=== PATIENT | female | born 1955 | race Caucasian/White ===

== ENCOUNTER 2016-10-06 13:31 | Emergency (ER) | payer OTHER ==
[~2016-10-06] VITALS: Ht 165.1 cm; Wt 73.9 kg
[~2016-10-06 13:31] MED LIST: ALEN70TA4 PO; CALC-354 PO; DVN80125 PO; GLUCTAB18 PO; LEVO88TA PO; MULT-884 PO; OMEG1200 PO
[2016-10-06 13:40] VITALS: BP 166/104; PULSE 74; TEMP 36.8; O2SAT 96; Ht 165.1 cm; Wt 73.9 kg
[2016-12-02] MEDS ORDERED: HYDR-5688 PO (15:37)
[2016-12-02] MEDS ORDERED: GABA-113 PO (15:37)
[2016-12-05] MEDS ORDERED: RXC5 PO (07:50)
== END 2016-10-06 14:45 | disposition left against medical advice (07) ==
LOC: C.EDB 13:33
DX: R20.0 Anesthesia of skin (principal)

== ENCOUNTER → 2016-11-06 | Outpatient (CLI) | payer BC ==
[~2016-11-06] MED LIST changes: +GABA-113 PO; +HYDR-5688 PO; +RXC5 PO; +[UNRECOGNIZED DRUG - CODE]
--- NOTE | 2016-11-06 11:42 | DIAGNOSTIC IMAGING REPORT ---
MRI OF THE LUMBAR SPINE WITHOUT IV CONTRAST CLINICAL HISTORY: Lumbar radiculopathy. Low back pain. COMPARISON STUDY: No priors. TECHNIQUE: MRI of the lumbar spine is performed utilizing various T1 and T2-weighted sequences in the axial and sagittal planes. IV contrast was not administered for this examination. FINDINGS: Lumbar spine: Vertebral body height and alignment are maintained throughout the lumbar spine. The transverse and spinous processes are intact as imaged. There is no evidence of spondylolysis. Large hemangiomas are present in the bodies of L2, L4, and L5. A Schmorl's node is seen in the superior endplate of T12. There is minimal chronic endplate change seen at L3-L4. No destructive bony lesion is suspected. Intervertebral discs: There is degenerative disc desiccation noted throughout the lumbar spine. There is moderate loss of height at L4-L5. Spinal cord: The imaged spinal cord is normal in morphology and signal intensity. The conus medullaris terminates at the level of L5. The nerve roots of the cauda equina are normal in morphology. L1-L2: There is minimal disc bulge. The central canal and neural foramina are widely patent. L2-L3: Unremarkable. L3-L4: Unremarkable. L4-L5: There is a posterior disc herniation with an inferiorly extruded fragment eccentric to the right. Annular fissure is noted. The extruded fragment measures up to 1.7 cm and impinges on the transiting right-sided L5 and S1 nerve roots. There is only minimal acquired compromise of the central canal at this level with a minimum AP diameter of 8 mm. The neural foramina are patent. L5-S1: There is minimal disc bulge eccentric to the right. This may abut the exiting right L5 nerve root. The central canal is clear. Facet arthropathy is of no consequence. The neural foramina are patent. Sacrum: The visualized sacrum is normal in morphology and signal intensity. Tiny hemangioma is noted in the body of S1. Soft tissues: The paraspinous soft tissues are within normal limits. The partially imaged retroperitoneal structures are grossly normal, but incompletely evaluated. IMPRESSION: 1. There is a disc herniation eccentric to the right at L4-L5 with an inferiorly extruded fragment. The disc fragment impinges on the transiting right L5 and S1 nerve roots. 2. There is mild acquired compromise of the central canal at L4-L5. The central canal is otherwise widely patent. 3. Degenerative change at additional levels as detailed above. See discussion for level by level analysis. Dictated: 11/06/2016 10:55 AM Transcribed: 11/06/2016 11:41 AM LOUISE_Eduar Electronically signed by: Nolberto Junior M.D. 11/06/2016 11:51 AM Dictated Date/Time: 11/06/2016 10:55 AM
== END | disposition home or self-care (01) ==
LOC: C.MRIBC 09:22
PROVIDERS: ATTEND Pain Medicine Interventional Pain Medicine
DX: M51.16 Intervertebral disc disorders with radiculopathy, lumbar region (principal)

== ENCOUNTER → 2016-12-02 | Outpatient (CLI) | payer BC ==
--- NOTE | 2016-12-02 15:18 | DIAGNOSTIC IMAGING REPORT ---
CHEST 2 VIEWS ROUTINE CLINICAL HISTORY: M54.16 PRE-OP COMPARISON STUDY: No previous studies for comparison. FINDINGS: The bones soft tissues and hemidiaphragms are normal. The cardiomediastinal silhouette is normal. The lungs are clear. The pulmonary vasculature is normal. IMPRESSION: Negative chest. Electronically signed by: James Davis M.D. 12/02/2016 3:16 PM Dictated Date/Time: 12/02/2016 3:16 PM
[2016-12-02 15:58] LABS: BASO % 0.7 %; BASO ABS # 0.04 K/uL (0-0.2); COMPLETE YES; EOS % 2.7 %; HEMATOCRIT 40.5 % (37-47); LYMPH % 35.9 %; LYMPH ABS # 2.14 K/uL (1.2-3.4); MEAN CELL VOLUME 90.6 fL (80-100); MEAN CORPUSCULAR HGB CONC 33.1 g/dl (32-36); MEAN PLATELET VOLUME 9.8 fL (7.4-10.4); MONO % 5.9 %; NEUT % 54.8 %; PLATELET COUNT 247 K/uL (130-400); RED BLOOD COUNT 4.47 M/uL (4.2-5.4); URINE APPEARANCE CLOUDY (CLEAR); URINE BILIRUBIN NEG (NEG); URINE COLOR YELLOW; URINE EPITHELIAL CELL AUTO >30 /lpf (0-5); URINE NITRITE NEG (NEG); URINE PH 5.5 (4.5-7.5); URINE SPECIFIC GRAVITY 1.023 (1.000-1.030); UROBILINOGEN NEG (NEG); WHITE BLOOD COUNT 5.96 K/uL (4.8-10.8)
[2016-12-02 15:59] LABS: MANUAL MICROSCOPIC REQUIRED? NO; REVIEW REQ? NO
[2016-12-02 16:25] LABS: BLOOD UREA NITROGEN 14 mg/dl (7-18); CALCIUM 8.9 mg/dl (8.5-10.1); CARBON DIOXIDE 31 mmol/L (21-32); CHLORIDE 107 mmol/L (98-107); CREATININE 0.72 mg/dl (0.60-1.20); GLUCOSE 94 mg/dl (70-99); POTASSIUM 3.6 mmol/L (3.5-5.1); SODIUM 142 mmol/L (136-145)
--- NOTE | 2016-12-03 09:32 | DIAGNOSTIC IMAGING REPORT ---
LUMBAR SPINE, INTRAOPERATIVE FLUOROSCOPY HISTORY: L4-S1 posterior decompression and fusion. FLUOROSCOPY TIME: 19 seconds. FINDINGS: Intraoperative fluoroscopy was provided for the lumbar spine. 2 fluoroscopic spot images were obtained. L4-S1 posterior decompression fusion with pedicle screws and rods. The hardware appears intact. IMPRESSION: Fluoroscopy provided for a L4-S1 posterior decompression and fusion. Electronically signed by: Tez Chau M.D. 12/03/2016 9:30 AM Dictated Date/Time: 12/03/2016 9:30 AM
== END | disposition home or self-care (01) ==
LOC: C.CPL 14:32
PROVIDERS: ATTEND Orthopaedic Surgery Orthopaedic Surgery of the Spine
DX: M54.16 Radiculopathy, lumbar region (principal)

== ENCOUNTER 2016-12-03 05:46 | Inpatient (IN) | payer BC ==
[2016-12-02 15:39] VITALS: Ht 160 cm; Wt 68.2 kg
[~2016-12-03] VITALS: Ht 160 cm; Wt 68.2 kg
[2016-12-03] VITALS (11 sets, daily range): BP systolic 102–154; BP diastolic 62–89; PULSE 66–82; TEMP 36.4–36.9; O2SAT 94–100
[~2016-12-03 05:46] MED LIST changes: -ALEN70TA4 PO; -RXC5 PO; -[UNRECOGNIZED DRUG - CODE]
[2016-12-03] MEDS ORDERED: CEFAZOLIN 1000MG/55 ML D5W IV SCH (06:00)
[2016-12-03] MEDS ORDERED: LACTATED RINGER'S 1000ML 1,000 ML IV SCH (06:00)
[2016-12-03] MEDS ORDERED: FENTANYL CITRATE INJ 50 MCG/1 ML 2 ML VIAL ONE ×2 (06:42→07:53)
[2016-12-03] MEDS ORDERED: MIDAZOLAM HCL 1 MG/ML 2ML VIAL ONE (06:42)
[2016-12-03] MEDS ORDERED: BACITRACIN 50000 UNIT VIAL ONE (06:55)
[2016-12-03] MEDS ORDERED: SODIUM CHLORIDE 0.9% PF 50 ML VIAL ONE (06:55)
[2016-12-03] MEDS ORDERED: BUPIVACAINE/EPINEPHRINE 0.5% MPF 1:200,000 30 ML VIAL ONE (06:55)
[2016-12-03] MEDS ORDERED: SCOPOLAMINE 1.5 MG TDSY TD ONE ×2 (07:07→07:15)
[2016-12-03] MEDS ORDERED: LACTATED RINGER'S 1000ML 1,000 ML IV PRN (07:11)
[2016-12-03] MEDS ORDERED: [UNRECOGNIZED DRUG - CODE] (07:13)
[2016-12-03] MEDS ORDERED: ONDANSETRON INJ 2 MG/ML 2 ML VIAL IV PRN ×2 (07:15→09:45)
[2016-12-03] MEDS ORDERED: FENTANYL CITRATE INJ 50 MCG/1 ML 2 ML VIAL IV PRN (07:15)
[2016-12-03] MEDS ORDERED: DiphenhydrAMINE HCL 50 MG/ML VIAL IV PRN (07:15)
[2016-12-03] MEDS ORDERED: HYDROmorphone INJ 1 MG/ML SYR IV PRN (07:15)
--- NOTE | 2016-12-03 07:26 | History & Physical Bridge Note ---
H&P Re-Evaluation Bridge Note: I have examined the patient, reviewed the History & Physical and in the interval since the performance of the History & Physical I have noted the following changes of clinical significance: No changes noted
--- NOTE | 2016-12-03 07:31 | History and Physical ---
History & Physical Date December 03, 2016. Chief Complaint back and leg pain History of Present Illness The patient is a 61 year old female with complaints of Past Medical/Surgical History Medical Problems: (1) HTN (hypertension) Surgical Problems: (1) H/O sinus surgery (2) H/O: hysterectomy (3) History of back surgery Additional History Hepatic Disease: No Endocrine Disorder: No Kidney Disease: No Hypertension: No Heart Disease: No Bleeding Tendencies: No Infectious Diseases: No Allergies Coded Allergies: Morphine (Verified Adverse Reaction, Unknown, vomiting, 12/03/16) Home Medications Scheduled Calcium Carbonate-Cholecalcife (Caltrate 600+D), 1 TAB PO BID Estropipate (Estropipate), 1 TAB DAILY Gabapentin (Neurontin), 300 MG PO HS Glucosamine-Chondroitin (Osteo Bi-Flex Regular Str), 1 TAB PO BID Levothyroxine Sodium (Synthroid), 88 MCG PO QAM Multiple Vitamin (Multi Vitamin Daily), 1 TAB PO QAM [place]-3 Fatty Acids (Fish Oil), 3 CAP PO QAM Valsartan/Hctz (Diovan Hct), 12.5-80 MG PO QAM Scheduled PRN Hydrocodone/Acetaminophen 5MG/325MG ([place] 5MG/325MG), 1 TABLET PO Q6H PRN for Pain Physical Examination Skin: warm/dry, no rash Eyes: normal inspection, EOMI, sclerae normal ENT: normal ENT inspection, pharynx normal Head: normocephalic, atraumatic Neck: supple, no adenopathy, trachea midline Respiratory/Chest: lungs clear, normal breath sounds, no respiratory distress Cardiovascular: regular rate, rhythm, no edema, no murmur Abdomen / GI: normal bowel sounds, non tender Back: normal inspection Extremities: normal inspection, normal range of motion Neurologic/Psych: no motor/sensory deficits, alert, normal reflexes, oriented x 3 Diagnosis lumbar stenosis Plan of Treatment decompression fusion L4-S1
[2016-12-03] MEDS ORDERED: HYDROmorphone INJ 2 MG/ML SYR/VIAL ONE ×2 (07:53→09:33)
[2016-12-03] MEDS ORDERED: CEFAZOLIN SOD 1 GM VIAL ONE (08:05)
[2016-12-03] MEDS ORDERED: ROCURONIUM BROMIDE 10 MG/ML 5 ML VIAL ONE (08:05)
[2016-12-03] MEDS ORDERED: PROPOFOL IV EMULSION 10 MG/ML 20 ML VIAL IV ONE (08:05)
[2016-12-03] MEDS ORDERED: RANITIDINE HCL 25 MG/ML INJ ONE (08:05)
[2016-12-03] MEDS ORDERED: LIDOCAINE HCL 2% 2 ML VIAL (20MG/ML) ONE (08:05)
[2016-12-03] MEDS ORDERED: DiphenhydrAMINE HCL 50 MG/ML VIAL ONE (08:05)
[2016-12-03] MEDS ORDERED: ONDANSETRON INJ 2 MG/ML 2 ML VIAL ONE ×2 (08:05→09:35)
[2016-12-03] MEDS ORDERED: METOCLOPRAMIDE HCL INJ 5 MG/ML 2 ML VIAL ONE (08:05)
[2016-12-03] MEDS ORDERED: DEXAMETHASONE SOD INJ 4 MG/ML VIAL ONE (08:05)
[2016-12-03] MEDS ORDERED: FLOSEAL HEMOSTATIC MATRIX 10ML TOP ONE (09:20)
[2016-12-03] MEDS ORDERED: NEOSTIGMINE METHYLSULFATE 1 MG/ML 10ML VIAL ONE (09:35)
[2016-12-03] MEDS ORDERED: GLYCOPYRROLATE INJ 0.2 MG/ML VIAL ONE (09:35)
[2016-12-03] MEDS ORDERED: KETOROLAC TROMETHAMINE 30 MG/ML VIAL ONE (09:35)
[2016-12-03] MEDS ORDERED: EpHEDrine SULFATE 50MG/5ML SYR ONE (09:35)
[2016-12-03] MEDS: LACTATED RINGER'S 1000ML 1,000 ML IV SCH ×3 (09:38→23:00)
[2016-12-03] MEDS ORDERED: SODIUM CHLORIDE 0.9% 1000ML 1,000 ML IV SCH (09:38)
--- NOTE | 2016-12-03 09:38 | [facility] Post Operative Brief Note ---
Immediate Operative Summary Operative Date December 03, 2016. Pre-Operative Diagnosis Lumbar Spinal Stenosis L4-S1 Post-Operative Diagnosis Same as preoperative. Procedure(s) Performed L5-S1 Revision, L4-S1 Decompression Posterior Lumbar Spinal Fusion, Placement of Interbody Spacer L4-L5, Pedicle Screw Fixation and Posteriolateral Gutter Fusion , Allograft, Application of Bone Morphogenetic Protein, Katina. Surgeon Net Architect Surgeon(s) Nichol Patrick Pa-C Estimated Blood Loss 125ML Findings hnp/stenosis Specimens None per surgeon
[2016-12-03] MEDS ORDERED: ALUMINUM/MAGNESIUM SUSP 30 ML UDC PO PRN (09:45)
[2016-12-03] MEDS ORDERED: FAMOTIDINE 20 MG TAB PO PRN (09:45)
[2016-12-03] MEDS ORDERED: MAGNESIUM HYDROXIDE SUSP 30 ML UDC PO PRN (09:45)
[2016-12-03] MEDS ORDERED: DO NOT ADMINISTER FLU VACCINE PRN ×3 (09:45)
[2016-12-03] MEDS ORDERED: ACETAMINOPHEN 500 MG TAB PO PRN (09:45)
[2016-12-03] MEDS ORDERED: HYDROmorphone HCL 0.5MG/ML 50 ML CASSETTE IV PRN (09:45)
[2016-12-03] MEDS ORDERED: LORAZEPAM INJ 0.5 MG in SYRINGE 0.75 ML IV PRN (09:45)
[2016-12-03] MEDS ORDERED: METOCLOPRAMIDE HCL INJ 5 MG/ML 2 ML VIAL IV PRN (09:45)
[2016-12-03] MEDS ORDERED: DO NOT ADMINISTER PNEUMOCOCCAL VACCINE PRN ×2 (09:45)
[2016-12-03] MEDS ORDERED: PROMETHAZINE HCL INJ 12.5 MG in SODIUM CHLORIDE 0.9% 50ML 50 ML IV PRN (09:45)
[2016-12-03] MEDS ORDERED: LORAZEPAM 0.5 MG TAB PO PRN (09:45)
[2016-12-03] MEDS ORDERED: NALOXONE HCL 0.4 MG/1 ML VIAL/CARP IV PRN ×2 (09:45)
[2016-12-03] MEDS ORDERED: SOD PHOSPHATE/SOD BIPHOSPHATE ENEMA 132 ML BTL PR PRN (09:45)
[2016-12-03] MEDS ORDERED: ACETAMINOPHEN IV 100 ML IV PRN (09:45)
[2016-12-03] MEDS ORDERED: hydrOXYzine HCL 25 MG TAB PO PRN (09:45)
[2016-12-03] MEDS ORDERED: BISACODYL 10 MG SUPP PR PRN (09:45)
[2016-12-03] MEDS ORDERED: HYDROmorphone HCL 0.5MG/ML 50 ML CASSETTE ONE (09:56)
--- NOTE | 2016-12-03 10:15 | OPERATIVE REPORT ---
DATE OF OPERATION: 12/03/2016 PREOPERATIVE DIAGNOSES: Herniated nucleus pulposus and spinal stenosis L4-L5 and L5-S1. POSTOPERATIVE DIAGNOSES: Same. PROCEDURES PERFORMED: 1. Revision decompression, medial facetectomy and foraminotomy, L3-L4, L4-L5 and L5-S1. 2. Posterior spinal fusion, L4-L5 and L5-S1. 3. Placement of posterior segmental instrumentation using Orthros rods and screws, L4-L5 and L5-S1. 4. Interbody fusion, L4-L5. 5. Placement of PEEK cage 10 x 22 at L4-L5. 6. Placement of locally harvested morselized autograft in the posterior gutters. 7. Placement of Infuse collagen sponge combined with Mastergraft in the posterior gutters and Katina bone graft in the interbody space. SURGEON: Dr. Niko Tompkins. RADIO HOST: Nichol Patrick PA-C. Due to the complex nature of the procedure, the entire surgery was performed with the machine operator assistant of Nichol Patrick PA-C. The machine operator assistant, under direct supervision, was involved in the actual performance of all aspects of the surgical procedure including hemostasis, tissue retraction and incision, instrument management, patient positioning, and wound closure. ANESTHESIA: General. DISPOSITION: The patient awakened and taken to PACU in stable condition. HISTORY OF PATIENT'S PROBLEMS: This is a 61-year-old female who presents with above-mentioned diagnoses. After failing an extensive course of nonoperative care, she elected to undergo the above-mentioned procedures. Risks, benefits, pros, cons, and alternatives were outlined in detail preoperatively. DESCRIPTION OF PROCEDURE: The patient was met with preoperatively, the case discussed and all questions were addressed. At that point, the patient was taken back to operative suite and after undergoing successful general intubation by the department of anesthesia, she was placed in prone position on Wolfgang table atop a Chase frame. All bony prominences were well padded and the eyes were inspected to ensure there was no external pressure placed upon them. At this point, lumbar spine was prepped and draped in normal sterile fashion. Sharp dissection with the assistance of Bovie cautery was performed down to and exposing the remaining lamina and transverse processes of L4, L5 and sacral ala bilaterally. From a caudal to cephalad fashion, a revision complete laminectomy of L5, L4, and partial laminectomy of L3 was performed addressing all lateral recess stenosis and foraminal disease particularly on the right. Pedicle screws were then placed in L4, L5 and S1 levels bilaterally with assistance of fluoroscopy and appropriate size alexandrea provisionally placed. Through transforaminal approach on the right, a complete diskectomy of L4-L5 was performed. Endplates were curetted to subcortical bleeding bone and a 10 x 22 mm PEEK cage filled with Katina bone grafting tapped into position. We were also able to retrieve all free fragments of disk material that migrated caudally under the L5 nerve root. I then proceeded to explore L5-S1 disk that was fairly extensively calcified posteriorly and we had excellent decompression and elected not to do an interbody at this level. The rods were then locked into final position bilaterally. A 7 flat ANDREA drain inserted and a transverse processes of L4, L5 and sacral ala burred to subcortical bleeding bone. Infused collagen sponge combined with Mastergraft and locally harvested morselized autograft was placed in the posterior gutters. A 7 flat ANDREA inserted. Incision was closed with 1-0 Vicryl in the fascia, 2-0 Vicryl subcutaneously, and 4-0 Monocryl for final skin closure. Steri-strips and sterile dressings placed. The patient was awakened and taken to PACU in stable condition. I attest to the content of the Intraoperative Record and any orders documented therein. Any exceptio ns are noted below.
--- NOTE | 2016-12-03 11:03 | Anesthesiology Progress Note ---
Anesthesia Post Op Note Date & Time December 03, 2016 at 11:03 Vital Signs Pain Intensity: 0 Vital Signs Past 12 Hours Date Time Temp Pulse Resp B/P Pulse Ox O2 Delivery O2 Flow Rate FiO2 12/03/16 10:25 36.4 75 16 136/85 100 Nasal Cannula 3 12/03/16 10:15 78 16 149/78 100 Nasal Cannula 3 12/03/16 10:05 83 16 137/77 100 Mask 5 12/03/16 09:55 88 16 138/80 100 Mask 10 12/03/16 09:49 36.5 105 18 147/79 100 Mask 10 12/03/16 06:46 36.4 66 16 154/89 100 Room Air Notes Mental Status: alert / awake / arousable, participated in evaluation Pt Amnestic to Procedure: Yes Nausea / Vomiting: adequately controlled Pain: adequately controlled Airway Patency, RR, SpO2: stable & adequate BP & HR: stable & adequate Hydration State: stable & adequate Anesthetic Complications: no major complications apparent Pt did well.
[2016-12-03] MEDS ORDERED: IV FLUIDS COMPLETED PRN (12:15)
[2016-12-03] MEDS: CEFAZOLIN IV 1,000 MG in DEXTROSE 5% 50ML 50 ML IV SCH (15:45)
[2016-12-03] MEDS: DEXAMETHASONE INJ 6 MG in SYRINGE 0 ML IV SCH (15:46)
[2016-12-03] MEDS: DOCUSATE SODIUM/SENNA 50/8.6MG TAB PO SCH (21:25)
[2016-12-03] MEDS: GABAPENTIN 300 MG CAP PO SCH (21:25)
[2016-12-04] MEDS: DEXAMETHASONE INJ 6 MG in SYRINGE 0 ML IV SCH ×3 (00:17→08:00)
[2016-12-04] MEDS: CEFAZOLIN IV 1,000 MG in DEXTROSE 5% 50ML 50 ML IV SCH (00:18)
[2016-12-04 03:10] VITALS: BP 110/69; PULSE 80; TEMP 36.8; O2SAT 96
[2016-12-04] MEDS: LACTATED RINGER'S 1000ML 1,000 ML IV SCH (05:38)
[2016-12-04] MEDS: LEVOTHYROXINE 88 MCG TAB PO SCH (05:53)
[2016-12-04] MEDS ORDERED: DC PCA SCH (06:00)
[2016-12-04] MEDS ORDERED: HYDROmorphone INJ 1 MG/ML SYR IV PRN (06:00)
[2016-12-04 06:12] LABS: BASO % 0.1 %; BASO ABS # 0.01 K/uL (0-0.2); COMPLETE YES; HEMATOCRIT 33.6 % (37-47); IG% 0.2 %; LYMPH % 5.8 %; LYMPH ABS # 0.84 K/uL (1.2-3.4); MEAN CELL VOLUME 89.6 fL (80-100); MEAN CORPUSCULAR HEMOGLOBIN 30.1 pg (25-34); MEAN CORPUSCULAR HGB CONC 33.6 g/dl (32-36); MEAN PLATELET VOLUME 9.8 fL (7.4-10.4); MONO % 2.7 %; NEUT % 91.2 %; PLATELET COUNT 228 K/uL (130-400); RED BLOOD COUNT 3.75 M/uL (4.2-5.4); WHITE BLOOD COUNT 14.55 K/uL (4.8-10.8)
[2016-12-04] MEDS ORDERED: NURSING VERBAL MED ORDER ONE ×2 (06:15→08:15)
[2016-12-04 06:45] LABS: BUN/CREATININE RATIO 14.3 (10-20); CALCIUM 8.1 mg/dl (8.5-10.1); CREATININE 0.7 mg/dl (0.60-1.20); POTASSIUM 4.2 mmol/L (3.5-5.1)
[2016-12-04 06:52] VITALS: BP 102/64; PULSE 73; TEMP 36.7; O2SAT 95
--- NOTE | 2016-12-04 07:44 | Anesthesiology Progress Note ---
Anesthesia Post Op Note Date & Time December 04, 2016 at 07:45 Vital Signs Pain Intensity: 5.0 Vital Signs Past 12 Hours Date Time Temp Pulse Resp B/P Pulse Ox O2 Delivery O2 Flow Rate FiO2 12/04/16 06:52 36.7 73 18 102/64 95 Room Air 12/04/16 03:10 36.8 80 16 110/69 96 Room Air 12/03/16 23:10 Room Air 12/03/16 22:55 36.7 71 16 109/66 95 Room Air Notes Mental Status: alert / awake / arousable, participated in evaluation Pt Amnestic to Procedure: Yes Nausea / Vomiting: adequately controlled Pain: adequately controlled Airway Patency, RR, SpO2: stable & adequate BP & HR: stable & adequate Hydration State: stable & adequate Anesthetic Complications: no major complications apparent
[2016-12-04] MEDS: VALSARTAN 80 MG TAB PO SCH (07:59)
[2016-12-04] MEDS: HYDROCHLOROTHIAZIDE 25 MG TAB PO SCH (07:59)
[2016-12-04] MEDS ORDERED: COUGH DROP (SUGAR FREE) LOZ 24 LOZ/1 BOX ONE (08:07)
[2016-12-04] MEDS: OXYCODONE HCL IR 5 MG TAB (IMMEDIATE RELEASE) PO PRN ×2 (08:11→12:04)
[2016-12-04] MEDS ORDERED: COUGH DROP (SUGAR FREE) LOZ 24 LOZ/1 BOX PO PRN (08:30)
[2016-12-04] MEDS ORDERED: VALSARTAN/HCTZ 80/12.5 MG TAB PO SCH (09:00)
[2016-12-04 11:23] VITALS: BP 130/85
[2016-12-04 14:16] VITALS: BP 114/72; PULSE 62; TEMP 36.5; O2SAT 99
--- NOTE | 2016-12-04 14:26 | PROGRESS NOTE ---
DATE: 12/04/2016 Postop day 1. Back pain is controlled. Leg pain improved. Vital signs stable. T-max 36.8. ANDREA drained 50 mL. Hematocrit 33.6. PHYSICAL EXAMINATION: She is sitting in chair at bedside. Has good strength to testing. Appears comfortable. ASSESSMENT: Status post lumbar decompression and fusion. PLAN: At this time, will continue physical therapy, advance his bowel regimen. Anticipate home in the next few days. RAINA
[2016-12-04 15:40] VITALS: BP 116/76; PULSE 66; TEMP 36.5; O2SAT 100
[2016-12-04] MEDS: KETOROLAC TROMETHAMINE 30 MG/ML VIAL IV PRN (18:56)
[2016-12-04] MEDS: DOCUSATE SODIUM/SENNA 50/8.6MG TAB PO SCH (21:06)
[2016-12-04] MEDS: GABAPENTIN 300 MG CAP PO SCH (21:06)
[2016-12-04 22:55] VITALS: BP 112/74; PULSE 69; TEMP 36.6; O2SAT 96
[2016-12-05] MEDS ORDERED: POLYETHYLENE (MIRALAX) 17 GM PACK PO SCH (06:00)
[2016-12-05] MEDS: LEVOTHYROXINE 88 MCG TAB PO SCH (06:16)
[2016-12-05] MEDS: KETOROLAC TROMETHAMINE 30 MG/ML VIAL IV PRN (06:17)
[2016-12-05 06:57] VITALS: BP 136/83; PULSE 68; TEMP 36.4; O2SAT 98
[2016-12-05] MEDS ORDERED: RXC5 PO (07:50)
--- NOTE | 2016-12-05 07:51 | Discharge Instructions ---
Discharge Instructions Date of Service December 05, 2016. Admission Reason for Admission: Spinal Stenosis Discharge Discharge Diagnosis / Problem: stenosis Discharge Goals Goal(s): Improve function Activity Recommendations Activity Limitations: per Instructions/Follow-up section . Instructions / Follow-Up Instructions / Follow-Up ACTIVITY RECOMMENDATIONS: SELF CARE INSTRUCTIONS AFTER THORACIC/LUMBAR FUSIONS 1. You may walk to your tolerance. It is good exercise for your legs and back. Expect some back and intermittent leg aches and pains. 2. You may perform "counter-top" level activities (make a sandwich, víctor with a project, etc.). 3. No bending or lifting of more than 10 pounds or back twisting of any nature (roll like a log when turning in bed). 4. You may ride in a car for 20-30 minutes at a time. No driving until after your first visit with your doctor. 5. Frequent changes of position and restricting sitting to 30 minutes at a time will help limit the amount of back spasms and stiffness you may experience. 6. You may discontinue the use of ambulatory aids (cane, crutches, etc.) once your strength and confidence allow. 7. 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 Do not take a tub bath, sit in a hot tub or go into a swimming pool until after your first recheck in the office. SPECIAL CARE INSTRUCTIONS: VERY IMPORTANT TO READ AND REVIEW A. Your surgical incision has been closed with a cosmetic suture under the skin that will dissolve in about 6 weeks. In 14 days, you can use a pair of clean scissors and cut the suture that is left outside of the skin at the ends of your incision. 1. The small skin tapes can be removed 7 days after surgery if they have not fallen off by that point. 2. You may keep the wound open to air as much as possible to promote healing after post-op day number 5 unless told otherwise by your doctor. 3. If you think the wound looks like it is becoming infected (redness or worsening drainage) and/or you are experiencing fever, chill or worsening back pain and muscle spasms, contact the office so that we may evaluate you as soon as possible. B. Complications are uncommon, but please contact us if you have any signs or symptoms of: 1. wound infection (fever higher than 102.5 degrees F, redness, separation of wound, drainage, or increasing pain from the incision) 2. blood clots in legs (pain, swelling, redness and warmth in legs) 3. urinary tract infection (fever higher than 102.5 degrees F, burning upon urination or increased frequency of urination) 4. nerve problems (inability to walk on your toes or heels, numbness, loss of bowel or bladder control) 5. any other symptoms that concern you C. Please call the office at if you have any concerns or questions about your operation or recovery. D. No smoking! Smoking drastically decreases the chance of a solid fusion. E. Do not take any anti-inflammatory medications (Indocin, Advil, Motrin, Aspirin, Naprosyn, etc.) as these may inhibit the chance of a solid fusion. Tylenol is okay to take for pain. MANAGING PAIN AFTER SPINAL SURGERY 1. Narcotic medication is intended for short-term use and will be provided for surgical pain. Surgical pain usually lasts for a period of 4-6 weeks. Narcotic medication includes Percocet, Vicodin, Darvocet, Tylenol #3 or Lortab. 2. Longer-term pain is more appropriately treated with non-narcotic medication such as Tylenol ES. 3. Muscle spasm is not appropriately treated with narcotics. Muscle relaxers such as Soma, Flexeril or Skelaxin can be used along with Tylenol ES. 4. Remember that we all live with some "aches and pains". This is not unusual or uncommon after an injury or as we get older. a. Back pain is expected and may include muscle spasms for 4 to 6 weeks after surgery. The pain should gradually improve. If the pain worsens for no apparent reason, please contact the office. b. Intermittent leg pain may also be experienced and should not be concerned about unless it worsens for no apparent reason. If so, please contact the office. 5. We will provide appropriate medication within the normal guidelines of their prescribed use. We will also be very cautious and aware of potential abuse and extended duration of patients' medication needs. a. Pain medications are for your comfort and to assist with sleep and rest so that the tissue can heal. They are not provided in order to return to normal activity and should not be used through the day. To do so or worsening pain at night can result from ongoing tissue damage and development of tolerance to the prescribed medicine. 6. Please allow 2-3 days to process refills. Prescriptions will not be mailed but must be picked up at the office. FOLLOW UP VISIT: Keep your scheduled follow-up appointment. Any questions, please call the office at . Current Hospital Diet Patient's current hospital diet: Regular Diet Discharge Diet Recommended Diet: Regular Diet Procedures Procedures Performed: L5-S1 Revision, L4-S1 Decompression Posterior Lumbar Spinal Fusion, Placement of Interbody Spacer L4-L5, Pedicle Screw Fixation and Posteriolateral Gutter Fusion , Allograft, Application of Bone Morphogenetic Protein, Katina. Pending Studies Studies pending at discharge: no Medical Emergencies . Who to Call and When: Medical Emergencies: If at any time you feel your situation is an emergency, please call 911 immediately. . Non-Emergent Contact Non-Emergency issues call your: Primary Care Provider . "Provider Documentation" section prepared by Niko Tompkins. . VTE Core Measure Inpt VTE Proph given/why not?: Silva Caruso, [facility]
--- NOTE | 2016-12-05 08:19 | DISCHARGE SUMMARY ---
DATE OF DISCHARGE: 12/05/2016. PRINCIPAL DIAGNOSIS: Spinal stenosis. HOSPITAL COURSE FOLLOWS: On November 2014 the patient underwent lumbar decompression and fusion, tolerated this well and taken to the orthopedic floor postoperatively. Postop day #1, she was up and ambulatory, progressed nicely through postop day #2. ANDREA drain decreasing appropriately, subsequently discharged home. Discharge orders and instructions can be found on the chart for further review.
[2016-12-05] MEDS: VALSARTAN 80 MG TAB PO SCH (09:35)
[2016-12-05] MEDS: HYDROCHLOROTHIAZIDE 25 MG TAB PO SCH (09:36)
[2016-12-05 10:20] VITALS: BP 136/83; PULSE 68; TEMP 36.4; O2SAT 98
[2016-12-05] MEDS: OXYCODONE HCL IR 5 MG TAB (IMMEDIATE RELEASE) PO PRN (10:47)
== END 2016-12-05 12:05 | disposition home or self-care (01) | DRG 460 ==
LOC: ENRESERVTM → ENRESERVDT → C.ACU 05:46 → C.3E 09:41 → OBSVTOIN 15:31
PROVIDERS: ADMIT Orthopaedic Surgery Orthopaedic Surgery of the Spine; ATTEND Orthopaedic Surgery Orthopaedic Surgery of the Spine
PROC: 0SG00AJ Fusion of Lumbar Vertebral Joint with Interbody Fusion Device, Posterior Approach, Anterior Column, Open Approach (ICD-10-PCS; principal; 2016-12-03 07:45)
PROC: 3E0U0GB Introduction of Recombinant Bone Morphogenetic Protein into Joints, Open Approach (ICD-10-PCS; principal; 2016-12-03 07:45)
PROC: 01NB0ZZ Release Lumbar Nerve, Open Approach (ICD-10-PCS; principal; 2016-12-03 07:45)
PROC: 0SG3071 Fusion of Lumbosacral Joint with Autologous Tissue Substitute, Posterior Approach, Posterior Column, Open Approach (ICD-10-PCS; principal; 2016-12-03 07:45)
PROC: 0ST20ZZ Resection of Lumbar Vertebral Disc, Open Approach (ICD-10-PCS; principal; 2016-12-03 07:45)
PROC: 0SG0071 Fusion of Lumbar Vertebral Joint with Autologous Tissue Substitute, Posterior Approach, Posterior Column, Open Approach (ICD-10-PCS; principal; 2016-12-03 07:45)
DX: M51.26 Other intervertebral disc displacement, lumbar region (principal); M48.06 Spinal stenosis, lumbar region; M48.07 Spinal stenosis, lumbosacral region; I10 Essential (primary) hypertension; M19.90 Unspecified osteoarthritis, unspecified site; Z79.890 Hormone replacement therapy; Z79.891 Long term (current) use of opiate analgesic; Z79.899 Other long term (current) drug therapy